=== PATIENT | female | born 1960 | race Caucasian/White ===

== ENCOUNTER 2020-02-01 07:12 | Outpatient (CLI) | payer BC, SELFPAY ==
--- NOTE | ~2020-02-01 | MM_ITS ---
EXAMINATION: MM screening [facility] HISTORY: Screening mammogram TECHNIQUE: Craniocaudal and mediolateral oblique 3-D tomosynthesis images were obtained and synthetic 2-D images were generated. Bilateral rotated lateral cc views. CAD analysis was submitted and interp reted. COMPARISON: 02/04/2018, 01/27/2017, 01/27/2016 bilateral digital screening mammogram examinations BREAST PARENCHYMAL COMPOSITION: The breasts are extremely dense, which lowers the sensitivity of mamm ography. FINDINGS: There is no evidence of suspicious mass, calcification, or architectural distortion to sugg est malignancy in either breast. There has been no suspicious interval change. IMPRESSION: 1. No mammographic evidence of malignancy. 2. Recommend routine screening mammography in one year. BI-RADS Category 1: Negative Reviewed, dictated and finalized at location A.
== END 2020-02-01 07:13 | disposition home or self-care (01) ==
LOC: ANHIMG 07:16
PROVIDERS: PCP Family Medicine; Visit Provider Obstetrics & Gynecology
DX: Z12.31 Encounter for screening mammogram for malignant neoplasm of breast (principal)
CPT/HCPCS: 77063; 77067

== ENCOUNTER 2020-07-17 08:18 | Outpatient (CLI) | payer BC, SELFPAY ==
[2020-07-17 16:39] LABS: Free T4 Free Thyroxine 1.01 ng/mL (0.78-2.19)
== END 2020-07-17 08:19 | disposition home or self-care (01) ==
LOC: ANHWCLAB 08:20
PROVIDERS: PCP Family Medicine; Visit Provider Internal Medicine Endocrinology, Diabetes & Metabolism
DX: E03.9 Hypothyroidism, unspecified (principal)
CPT/HCPCS: 36415; 84439; 84443

== ENCOUNTER 2021-05-19 07:46 | Outpatient (CLI) | payer BC, SELFPAY ==
--- NOTE | ~2021-05-19 | MM_ITS ---
EXAMINATION: MM screening [facility] HISTORY: Screening TECHNIQUE: Craniocaudal and mediolateral oblique 3-D tomosynthesis images were obtained and synthetic 2-D images were generated. CAD analysis was submitted and interpreted. COMPARISON: No prior mammogram is available for comparison at this institution. BREAST PARENCHYMAL COMPOSITION: The breasts are extremely dense, which lowers the sensitivity of mamm ography FINDINGS: There is no evidence of suspicious mass, calcification, or architectural distortion to sugg est malignancy in either breast. There has been no suspicious interval change. IMPRESSION: 1. No mammographic evidence of malignancy. 2. Recommend routine screening mammography in one year. BI-RADS Category 1: Negative Reviewed, dictated and finalized at location A. [employer]
== END 2021-05-19 07:47 | disposition home or self-care (01) ==
LOC: ANHIMG 07:48
PROVIDERS: PCP Family Medicine; Visit Provider Obstetrics & Gynecology
DX: Z12.31 Encounter for screening mammogram for malignant neoplasm of breast (principal)
CPT/HCPCS: 77063; 77067

== ENCOUNTER 2022-07-02 07:55 | Outpatient (CLI) | payer BC, SELFPAY ==
--- NOTE | ~2022-07-02 | MM_ITS ---
EXAMINATION: MM screening [facility] HISTORY: Screening mammogram TECHNIQUE: Craniocaudal and mediolateral oblique 3-D tomosynthesis images were obtained and synthetic 2-D images were generated. CAD analysis was submitted and interpreted. COMPARISON: 05/19/2021, 02/01/2020, 2017 bilateral screening mammogram examinations BREAST PARENCHYMAL COMPOSITION: The breasts are extremely dense, which lowers the sensitivity of mamm ography. FINDINGS: There is no evidence of suspicious mass, calcification, or architectural distortion to sugg est malignancy in either breast. There has been no suspicious interval change. IMPRESSION: 1. No mammographic evidence of malignancy. 2. Recommend routine screening mammography in one year. BI-RADS Category 1: Negative Reviewed, dictated and finalized at location A. [employer]
== END 2022-07-02 07:56 | disposition home or self-care (01) ==
PROVIDERS: PCP Family Medicine; Visit Provider Obstetrics & Gynecology
DX: Z12.31 Encounter for screening mammogram for malignant neoplasm of breast (principal)
CPT/HCPCS: 77063; 77067

== ENCOUNTER 2023-07-29 07:53 | Outpatient (CLI) | payer BC, SELFPAY ==
--- NOTE | ~2023-07-29 | MM_ITS ---
EXAMINATION: MM screening [facility] HISTORY: Screening TECHNIQUE: Craniocaudal and mediolateral oblique 3-D tomosynthesis images were obtained and synthetic 2-D images were generated. CAD analysis was submitted and interpreted. COMPARISON: Comparison to multiple prior studies sequentially, with oldest reviewed study dated 01/26. BREAST PARENCHYMAL COMPOSITION: Dense: The breasts are extremely dense, which lowers the sensitivity of mammography. FINDINGS: There is no evidence of suspicious mass, calcification, or architectural distortion to sugg est malignancy in either breast. There has been no suspicious interval change. IMPRESSION: 1. No mammographic evidence of malignancy. 2. Recommend routine screening mammography in one year. BI-RADS Category 1: Negative Reviewed, dictated and finalized at location A.
== END 2023-07-29 07:54 | disposition home or self-care (01) ==
PROVIDERS: PCP Family Medicine; Visit Provider Obstetrics & Gynecology
DX: Z12.31 Encounter for screening mammogram for malignant neoplasm of breast (principal)
CPT/HCPCS: 77063; 77067

== ENCOUNTER 2024-08-25 07:40 | Outpatient (CLI) | payer BC, SELFPAY ==
--- NOTE | ~2024-08-25 | MM_ITS ---
EXAMINATION: MM screening [facility] HISTORY: Screening TECHNIQUE: Craniocaudal and mediolateral oblique 3-D tomosynthesis images were obtained and synthetic 2-D images were generated. CAD analysis was submitted and interpreted. COMPARISON: Comparison to multiple prior studies sequentially, with oldest reviewed study dated 01/27. BREAST PARENCHYMAL COMPOSITION: Dense: The breasts are extremely dense, which lowers the sensitivity of mammography. FINDINGS: There is no evidence of suspicious mass, calcification, or architectural distortion to sugg est malignancy in either breast. There has been no suspicious interval change. IMPRESSION: 1. No mammographic evidence of malignancy. 2. Recommend routine screening mammography in one year. BI-RADS Category 1: Negative Reviewed, dictated and finalized at location B.
== END 2024-08-25 07:41 | disposition home or self-care (01) ==
LOC: ANHIMG 07:44
PROVIDERS: PCP Family Medicine; Visit Provider Obstetrics & Gynecology
DX: Z12.31 Encounter for screening mammogram for malignant neoplasm of breast (principal)
CPT/HCPCS: 77063; 77067

== ENCOUNTER 2024-09-13 08:34 | Emergency (ER) | payer BC, SELFPAY ==
[2024-09-13 08:46] VITALS: BP 106/65; PULSE 70; RESP 16; TEMP 36; O2SAT 100
--- NOTE | 2024-09-13 09:00 | ED_ITS ---
HPI - Animal Bite General Chief Complaint: Animal Bite Stated Complaint: CAT BITE Time Seen by Provider: 09/13/24 09:00 Source: patient Mode of arrival: ambulatory Limitations: no limitations History of Present Illness HPI narrative: 64 y/o female presented for c/o redness and swelling around a cat bite to the right arm. Sustained over 24 hours ago. Denies streaking, pus, fever, decreased ROM, numbness, tingling of the arm. Cleansed the site with soap and water and applied alcohol swab to the site. She was bitten through the shirt sleeve. Unsure of last tetanus. Pt was cleaning the cat's fdc enclosure, who is utd on vaccinations. Related Data Home Medications ?Medication ?Instructions ?Recorded ?Confirmed ?Last Taken ?Type garlic 400 mg tablet 400 mg PO DAILY 07/17/21 09/07/24 Unknown History multivitamin 1 tablet PO DAILY 07/17/21 09/07/24 Unknown History bimatoprost 0.01 % eye drops 1 drp EACH EYE DAILY 09/07/24 09/07/24 Unknown History (Lumigan) brimonidine 0.2 %-timolol 0.5 % drp ophthalmic (eye) 09/07/24 09/07/24 Unknown History eye drops (Combigan) lifitegrast 5 % eye drops in a 1 drp EACH EYE BID 09/07/24 09/07/24 Unknown History dropperette (Xiidra) Allergies Allergy/AdvReac Type Severity Reaction Status Date / Time No Known Allergies Allergy Verified 09/13/24 08:50 Review of Systems Review of Systems: CONSTITUTIONAL: Denies body aches, fever, chills, or sweats. EYES: Denies visual changes, redness, or discharge. ENT: Denies rhinorrhea, congestion CARDIOVASCULAR: Denies chest pain, palpitations, or edema. RESPIRATORY: Denies cough or dyspnea. GASTROINTESTINAL: Denies abdominal pain, nausea, vomiting, or diarrhea. SKIN: per hpi MUSCULOSKELETAL: Denies back pain, joint pain, or myalgia. NEUROLOGIC: Denies headache, numbness, tingling, or weakness. 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 Surgical History Surgical History History of tubal ligation Hx of LASIK Hx of tonsillectomy H/O thyroidectomy Family History Family History Sibling Hypertension Family history of diabetes mellitus in first degree relative Mother Family history of diabetes mellitus in first degree relative Family history of malignant neoplasm, Onset Age: 68 Family history of coronary artery disease, Onset Age: 73 Patient's mother is Other Diabetes mellitus Family history of alcoholism Family history of cardiovascular disease Family history of rheumatoid arthritis Social History Social History Smoking status: Never smoker Alcohol intake: current Comments At time of signature, I have reviewed and agree with nursing past medical, surgical, social and family history unless otherwise noted. Please see nursing chart for further information. There is no relevant family history pertinent to the presenting complaint Exam Narrative: GENERAL: Well-appearing HEAD: Normocephalic, atraumatic. EYES: conjunctivae clear, and EOMI. ENT: Mucous membranes moist. Oropharynx without edema, erythema or lesions. NECK: Supple. No lymphadenopathy CHEST: Clear to auscultation. HEART: Regular rate and rhythm. SKIN: Warm, dry. Right forearm with 2 puncture wounds, scabbed. Surrounding erythema with mild swelling [id number] diameter. No fluctuance or drainage. NEURO: Alert and oriented x3. Course Course Emergency Course: Patient is aware of diagnosis, understands and agrees to treatment plan. Anticipatory guidance given. Patient agrees to follow-up as directed and is aware of reasons to seek care at the emergency department. Portions of this record may have been created with voice recognition software Level of Care: Express Care Visit Vital Signs Vital signs: Vital Signs Temperature 96.8 F L 09/13/24 08:46 Pulse Rate 70 09/13/24 08:46 Respiratory Rate 16 09/13/24 08:46 Blood Pressure 106/65 09/13/24 08:46 Pulse Oximetry 100 09/13/24 08:46 Temperature 96.8 F L 09/13/24 08:46 Pulse Rate 70 09/13/24 08:46 Respiratory Rate 16 09/13/24 08:46 Blood Pressure 106/65 09/13/24 08:46 Pulse Oximetry 100 09/13/24 08:46 Reviewed MDM - Animal Bite MDM Narrative Medical decision making narrative: Discussed physical exam findings. Tetanus updated. Reviewed Rx. Advised supportive measures and signs/symptoms to go to the ER. Pt is appropriate for outpt treatment and f/u. Differential Diagnosis Differential diagnosis: Likely bite by animal, cat bite, rabies contact and other Discharge Plan Discharge Clinical Impression: Cat bite Patient Disposition: Home Condition: Stable Instructions: Antibiotic Form, Animal Bite (ED), Cellulitis (ED) Additional Instructions: Keep the area clean and dry - cleanse with warm water and mild soap and allow to fully dry. Ok to apply neosporin to the site Keep it open to air (no bandages) Tylenol for pain Take antibiotic as directed Watch for worsening symptoms including pain, redness, swelling, streaking, pus/drainage, fever. Go to the ER with any of these symptoms or concerns. Follow up with primary care provider in 1 week as needed. Patient Language: Belizean Prescriptions: New amoxicillin-pot clavulanate 875-125 mg tablet 1 tablet PO Q12H 7 Days Qty: 14 0RF No Action omega 3-nkc-kww-fish oil [Fish Oil] 1,000 mg (120 mg-180 mg) capsule 1 cap PO DAILY Qty: 90 1RF levothyroxine 75 mcg tablet 75 mcg PO DAILY 90 Days Qty: 90 3RF brimonidine-timolol [Combigan] 0.2-0.5 % drops ophthalmic (eye) Lumigan 0.01 % drops 1 drp EACH EYE DAILY Xiidra 5 % dropperette 1 drp EACH EYE BID Rx Instructions: administer approximately 12 hours apart garlic 400 mg tablet 400 mg PO DAILY multivitamin Tablet 1 tablet PO DAILY Follow-up/Referrals: Greg Parker MD [Primary Care Provider] - Time of Disposition: 09:04
[2024-09-13] MEDS: TETANUS,DIPHTHERIA,AC PERTUSSIS ADULT (0.5 ML) BOOSTRIX IM (09:13)
== END 2024-09-13 09:18 | disposition home or self-care (01) ==
PROVIDERS: PCP Family Medicine
DX: S51.831A Puncture wound without foreign body of right forearm, initial encounter (principal); W55.01XA Bitten by cat, initial encounter; Z23 Encounter for immunization; Z85.828 Personal history of other malignant neoplasm of skin
CPT/HCPCS: 90471; 90715; 99213; G0463